=== PATIENT | female | born 1935 | race Caucasian/White ===

== ENCOUNTER → 2017-01-11 | Outpatient (CLI) | payer MEDICARE, OTHER ==
--- NOTE | 2017-01-11 18:01 | RADIOLOGY REPORT (SQ) ---
EXAM DESCRIPTION: FOOT RIGHT COMPLETE COMPLETED DATE/TIME: 01/11/2017 5:07 pm REASON FOR STUDY: GOUT, UNSPECIFIED M10.9 GOUT, UNSPECIFIED COMPARISON: None. NUMBER OF VIEWS: Three views. TECHNIQUE: AP, lateral and oblique radiographic images acquired of the right foot. LIMITATIONS: None. FINDINGS: MINERALIZATION: Normal. BONES: Marginal erosion along the medial base right great toe proximal phalanx characteristic for gou t. No fracture JOINTS: 1st metatarsophalangeal joint space narrowing. 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
== END ==
LOC: OD 16:53
PROVIDERS: ATTEND Physician Assistant
DX: M10.9 Gout, unspecified (principal)

== ENCOUNTER 2018-08-14 08:05 | Emergency (ER) | payer MEDICARE, OTHER ==
[2018-08-14] MEDS ORDERED: ACETAMINOPHEN 325 MG TABLET PO ONE (09:58)
[2018-08-14] MEDS ORDERED: NORMAL SALINE 1000 ML 1,000 ML IV ONE (09:58)
[2018-08-14 10:23] LABS: ABSOLUTE EOSINOPHILS # (AUTO) 0.1 10^3/uL (0.0-0.6); ABSOLUTE LYMPHOCYTES (AUTO) 0.5 10^3/uL (0.5-4.7); ABSOLUTE MONOCYTES (AUTO) 0.7 10^3/uL (0.1-1.4); ABSOLUTE NEUT (AUTO) 4.9 10^3/uL (1.7-8.2); BASOPHILS % (AUTO) 0.4 % (0-2); HEMATOCRIT 38.1 % (36.0-47.0); HEMOGLOBIN 13.1 g/dL (12.0-15.5); LYMPHOCYTES % (AUTO) 7.7 % (13-45); MEAN CORPUSCULAR HEMOGLOBIN 31.1 pg (27.0-33.4); MEAN CORPUSCULAR HGB CONC 34.3 g/dL (32.0-36.0); MEAN CORPUSCULAR VOLUME 91 fl (80-97); MONOCYTES % (AUTO) 11.9 % (3-13); PLATELET COUNT 179 10^3/uL (150-450); RED BLOOD COUNT 4.21 10^6/uL (3.72-5.28); RED CELL DISTRIBUTION WIDTH 13.1 % (11.5-14.0); TOTAL CELLS COUNTED % (AUTO) 100 %; WHITE BLOOD COUNT 6.1 10^3/uL (4.0-10.5)
--- NOTE | 2018-08-14 10:34 | ER Document Report ---
ED General - General Chief Complaint: Chest Pain Stated Complaint: CHEST PAIN Time Seen by Provider: 08/14/18 09:57 Primary Care Provider: PARI LOZA PA [Primary Care Provider] - Follow up as needed TRAVEL OUTSIDE OF THE [place] IN LAST 30 DAYS: No - HPI Notes: Patient is a 83-year-old female that presents to the emergency department for chief complaint of cough, chest pain and back pain. Patient reports on Sunday she choked while eating, later that evening she started coughing. She states she has had increasing coughing and congestion since then. She denied any known fevers but was told she was febrile when she was here today. Patient states she tried to see her doctor yesterday for the symptoms but was unable to get an appointment. She reports an aching pain in her diffuse anterior chest and posterior upper back worse with coughing. She states the pain significantly improves when she is not coughing. She denies any nausea, vomiting, abdominal pain. She did not get an influenza vaccine this year. She denies any sick contacts. Patient's family is also concerned that for the last month she has had decreased mobility because of gout in both of her feet. She is currently taking her allopurinol for the gout. Patient has not taken any of her morning medications yet today. Past Medical History: Hypertension, atrial fibrillation Past Surgical History: Right arm fracture repair Social History: Denies drugs alcohol and tobacco Family History: Reviewed and noncontributory for presenting illness Allergies: Reviewed, see documented allergy list. REVIEW OF SYSTEMS: CONSTITUTIONAL : No fever chills No diaphoresis No recent illness EENT: No vision changes congestion No sore throat CARDIOVASCULAR: chest pain No palpitations RESPIRATORY: shortness of breath cough difficulty breathing GASTROINTESTINAL: No abdominal pain No nausea No vomiting No diarrhea GENITOURINARY: No dysuria No hematuria No difficulty urinating MUSCULOSKELETAL: back pain No leg pain No arm pain SKIN: No rashes No lesions LYMPHATIC: No swollen, enlarged glands. NEUROLOGICAL: No lightheadedness No headache No weakness No paresthesias PSYCHIATRIC: No anxiety No depression PHYSICAL EXAMINATION: Vital signs reviewed, nursing noted reviewed. GENERAL: Well-appearing, well-nourished and in no acute distress. HEAD: Atraumatic, normocephalic. EYES: Eyes appear normal, extraocular movements intact, sclera anicteric, conjunctiva are normal. ENT: nares patent, oropharynx clear without exudates. Mildly dry mucous membranes. NECK: Normal range of motion, supple without lymphadenopathy LUNGS: Breath sounds diminished to auscultation bilaterally and equal. No wheezes rales or rhonchi. HEART: Irregularly irregular and tachycardic rhythm without murmurs, +2/4 bilateral radial and DP pulses ABDOMEN: Soft, nontender, normoactive bowel sounds. No rebound, guarding, or rigidity. No masses appreciated. EXTREMITIES: Nontender, good range of motion, no pitting or edema. NEUROLOGICAL: No focal neurological deficits. Moves all extremities spontaneously Motor and sensory grossly intact on exam. Mild diffuse tenderness to palpation of her feet bilaterally with no focal erythema or edema. PSYCH: Normal mood, normal affect. SKIN: Warm, Dry, normal turgor, no rashes or lesions noted on exposed skin - Related Data Allergies/Adverse Reactions: No Known Allergies Allergy (Verified 08/14/18 08:08) Past Medical History - Social History Smoking Status: Unknown if Ever Smoked Family History: Reviewed & Not Pertinent Patient has suicidal ideation: No Patient has homicidal ideation: No - Past Medical History Cardiac Medical History: Reports: Hx Hypertension Denies: Hx Heart Attack Pulmonary Medical History: Denies: Hx Asthma Neurological Medical History: Denies: Hx Cerebrovascular Accident, Hx Seizures Renal/ Medical History: Denies: Hx Peritoneal Dialysis GI Medical History: Denies: Hx Hepatitis, Hx Ulcer Musculoskeletal Medical History: Infectious Medical History: Denies: Hx Hepatitis Past Surgical History: Denies: Hx Mastectomy, Hx Open Heart Surgery, Hx Pacemaker - Immunizations Hx Diphtheria, Pertussis, Tetanus Vaccination: Yes Physical Exam - Vital signs Vitals: Temp Pulse Resp BP Pulse Ox 101.4 F H 100 16 151/71 H 100 08/14/18 08:09 08/14/18 08:09 08/14/18 08:09 08/14/18 08:09 08/14/18 08:09 Course - Re-evaluation Re-evalutation: 08/14/18 10:33 Vitals reviewed. Nursing notes reviewed. Patient is tachycardic and febrile. She will be given IV fluids and Tylenol for symptom medic management. 08/14/18 12:32 Laboratory 08/14/18 08/14/18 08/14/18 09:44 09:44 09:44 WBC 6.1 RBC 4.21 Hgb 13.1 Hct 38.1 MCV 91 MCH 31.1 MCHC 34.3 RDW 13.1 Plt Count 179 Seg Neutrophils % 79.0 H Lymphocytes % 7.7 L Monocytes % 11.9 Eosinophils % 1.0 Basophils % 0.4 Absolute Neutrophils 4.9 Absolute Lymphocytes 0.5 Absolute Monocytes 0.7 Absolute Eosinophils 0.1 Absolute Basophils 0.0 Sodium Cancelled Potassium Cancelled Chloride Cancelled Carbon Dioxide Cancelled Anion Gap Cancelled BUN Cancelled Creatinine Cancelled Est GFR ( Amer) Cancelled Est GFR (Non-Af Amer) Cancelled Glucose Cancelled Lactic Acid Calcium Cancelled Total Bilirubin Cancelled Direct Bilirubin Cancelled Neonat Total Bilirubin Cancelled Neonat Direct Bilirubin Cancelled Neonat Indirect Bili Cancelled AST Cancelled ALT Cancelled Alkaline Phosphatase Cancelled Troponin I < 0.012 Total Protein Cancelled Albumin Cancelled Influenza A (Rapid) Influenza B (Rapid) 08/14/18 08/14/18 08/14/18 10:20 10:20 10:51 WBC RBC Hgb Hct MCV MCH MCHC RDW Plt Count Seg Neutrophils % Lymphocytes % Monocytes % Eosinophils % Basophils % Absolute Neutrophils Absolute Lymphocytes Absolute Monocytes Absolute Eosinophils Absolute Basophils Sodium 135.1 L Potassium 4.4 Chloride 101 Carbon Dioxide 26 Anion Gap 8 BUN 12 Creatinine 1.00 Est GFR ( Amer) > 60 Est GFR (Non-Af Amer) 53 L Glucose 109 Lactic Acid 0.9 Calcium 9.5 Total Bilirubin 0.5 Direct Bilirubin 0.1 Neonat Total Bilirubin Not Reportable Neonat Direct Bilirubin Not Reportable Neonat Indirect Bili Not Reportable AST 30 ALT 27 Alkaline Phosphatase 55 Troponin I Total Protein 6.3 Albumin 3.7 Influenza A (Rapid) POSITIVE Influenza B (Rapid) NEGATIVE Chest X-Ray 08/14/18 09:57 IMPRESSION: Cardiomegaly without acute abnormality of the lungs. No focal airspace opacity. Patient reevaluated. She is oxygenating well on room air and in no respiratory distress. Her heart rate has been varying between the upper 90s-130s. She is in atrial fibrillation which is chronic for her. Patient will be given a dose of her Bystolic for further heart rate control. She was offered admission to the hospital for telemetry monitoring of her tachycardia but has declined. She is otherwise hemodynamically stable. Her workup shows influenza a however she is outside the window for Tamiflu. She was counseled on symptomatic management including hydration and Tylenol at home. She was encouraged to follow with her primary care doctor tomorrow for reevaluation of her tachycardia. She will also monitor her heart rate at home and will return if she is persistently tachycard ic greater than 120 or if she becomes symptomatic including palpitations, shortness of breath and lightheadedness. Patient's family is in agreement with plan of care and will assist her this evening. She is stable at discharge. - Vital Signs Vital signs: Temp Pulse Resp BP Pulse Ox 101.4 F H 100 16 151/71 H 100 08/14/18 08:09 08/14/18 08:09 08/14/18 08:09 08/14/18 08:09 08/14/18 08:09 - Laboratory Result Diagrams: 08/14/18 09:44 08/14/18 10:51 Laboratory results interpreted by me: 08/14/18 08/14/18 09:44 10:51 Seg Neutrophils % 79.0 H Lymphocytes % 7.7 L Sodium 135.1 L Est GFR (Non-Af Amer) 53 L - EKG Interpretation by Me Additional EKG results interpreted by me: 08/14/18 10:33 Interpreted by myself 0815: Atrial fibrillation with RVR, rate 100, normal axis, left bundle branch block Discharge - Discharge Clinical Impression: Influenza A Condition: Stable Disposition: HOME, SELF-CARE Instructions: Influenza ([facility]) [id number] Additional Instructions: Please return to the emergency department if you have any worsening, or concern of your symptoms. Please return to the emergency department if you develop chest pain, difficulty breathing, severe abdominal pain, or ongoing vomiting. Please follow-up with your primary care physician tomorrow. If prescribed, take all medications as directed. If you have any questions or concerns do not hesitate to return the emergency department for evaluation. Your heart rate was elevated today because of fever and your atrial fibrillation. You were given your dose of Bystolic in the emergency room and do not need to take this home medication again this evening. Please check your heart rate at home and if you are having heart rates consistently above 120-130 you should return to the emergency room. Return to the emergency room also if you develop any palpitations, increasing shortness of breath, lightheadedness or difficulty breathing. Referrals: PARI LOZA PA [Primary Care Provider] - Follow up tomorrow
[2018-08-14 10:53] LABS: A TYPE INFLUENZA AG POSITIVE (NEGATIVE); B INFLUENZA AG NEGATIVE (NEGATIVE)
[2018-08-14 11:21] LABS: ALANINE AMINOTRANSFERASE 27 U/L (9-52); ALBUMIN 3.7 g/dL (3.5-5.0); ALKALINE PHOSPHATASE 55 U/L (38-126); ANION GAP 8 (5-19); ASPARTATE AMINO TRANSFERASE 30 U/L (14-36); BILIRUBIN,DIRECT 0.1 mg/dL (0.0-0.4); BILIRUBIN,TOTAL 0.5 mg/dL (0.2-1.3); BLOOD UREA NITROGEN 12 mg/dL (7-20); CALCIUM 9.5 mg/dL (8.4-10.2); CARBON DIOXIDE 26 mmol/L (22-30); CHLORIDE 101 mmol/L (98-107); GLUCOSE 109 mg/dL (75-110); POTASSIUM 4.4 mmol/L (3.6-5.0); SODIUM 135.1 mmol/L (137-145); TOTAL PROTEIN 6.3 g/dL (6.3-8.2)
--- NOTE | 2018-08-14 11:32 | RADIOLOGY REPORT (SQ) ---
EXAM DESCRIPTION: CHEST 2 VIEWS COMPLETED DATE/TIME: 08/14/2018 11:23 am REASON FOR STUDY: cough COMPARISON: None. EXAM PARAMETERS: NUMBER OF VIEWS: two views TECHNIQUE: Digital Frontal and Lateral radiographic views of the chest acquired. RADIATION DOSE: NA LIMITATIONS: none FINDINGS: LUNGS AND PLEURA: No opacities, masses or pneumothorax. No pleural effusion. MEDIASTINUM AND HILAR STRUCTURES: No masses or contour abnormalities. HEART AND VASCULAR STRUCTURES: Cardiomegaly. BONES: Partially imaged plate and screw fixation of the proximal right humerus. HARDWARE: None in the chest. OTHER: No other significant finding. IMPRESSION: Cardiomegaly without acute abnormality of the lungs. No focal airspace opacity. TECHNICAL DOCUMENTATION: JOB ID: [id number] [employer]- All Rights Reserved Reading location - IP/workstation name: [email or web address]
[2018-08-14] MEDS ORDERED: NEBIVOLOL HCL 10 MG TABLET PO ONE (11:52)
[2018-08-14 12:56] VITALS: BP 125/75
--- NOTE | 2018-08-14 21:05 | EKG REPORT ---
SEVERITY:- ABNORMAL ECG - ATRIAL FIBRILLATION, V-RATE 76-126 LEFT BUNDLE BRANCH BLOCK : Confirmed by: Estelle Alva 14-Aug-2018 21:04:31
== END 2018-08-14 13:07 | disposition home or self-care (01) ==
LOC: ER 08:05
DX: J10.1 Influenza due to other identified influenza virus with other respiratory manifestations (principal); R07.9 Chest pain, unspecified; R05 Cough; M54.9 Dorsalgia, unspecified; I10 Essential (primary) hypertension; I48.91 Unspecified atrial fibrillation; I44.7 Left bundle-branch block, unspecified
CPT/HCPCS: 93005; 99283; 96360; 96361; 36415; 87040; 85025; 80076; 80048; 84484; 83605; 87804; 71046; 93010; A9270 ×2; J7030

== ENCOUNTER 2019-04-24 17:36 | Emergency (ER) | payer MEDICARE, OTHER ==
[2019-04-24 17:37] VITALS: BP 181/66
--- NOTE | 2019-04-24 17:45 | ER Document Report ---
ED Medical Screen (RME) - General Chief Complaint: Fall Stated Complaint: FALL/HEAD PAIN Time Seen by Provider: 04/24/19 17:39 Primary Care Provider: APRI LOZA PA [Primary Care Provider] - Follow up as needed Mode of Arrival: Wheelchair Information source: Patient Notes: 84-year-old female presented to ED for fall landing on her hip hand and her head. She is on Eliquis. She was to her primary care doctor yesterday her heart rate is running in the 50s. 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 She states she also had no feeling in the right hip at the time she fell. I have greeted and performed a rapid initial assessment of this patient. A comprehensive ED assessment and evaluation of the patient, analysis of test results and completion of medical decision making process will be conducted by an additional ED providers. TRAVEL OUTSIDE OF THE [place] IN LAST 30 DAYS: No - Related Data Allergies/Adverse Reactions: No Known Allergies Allergy (Verified 08/14/18 08:08) Past Medical History - Past Medical History Cardiac Medical History: Reports: Hx Hypertension Denies: Hx Heart Attack Pulmonary Medical History: Denies: Hx Asthma Neurological Medical History: Denies: Hx Cerebrovascular Accident, Hx Seizures Renal/ Medical History: Denies: Hx Peritoneal Dialysis GI Medical History: Denies: Hx Hepatitis, Hx Ulcer Musculoskeltal Medical History: Infectious Medical History: Denies: Hx Hepatitis Past Surgical History: Denies: Hx Mastectomy, Hx Open Heart Surgery, Hx Pacemaker - Immunizations Hx Diphtheria, Pertussis, Tetanus Vaccination: Yes Physical Exam - Vital signs Vitals: Temp Pulse Resp BP Pulse Ox 97.5 F 55 L 16 181/66 H 97 04/24/19 17:36 04/24/19 17:36 04/24/19 17:36 04/24/19 17:36 04/24/19 17:36 Course - Vital Signs Vital signs: Temp Pulse Resp BP Pulse Ox 97.5 F 55 L 16 181/66 H 97 04/24/19 17:36 04/24/19 17:36 04/24/19 17:36 04/24/19 17:36 04/24/19 17:36 Doctor's Discharge - Discharge Referrals: DENIA,PARI, PA [Primary Care Provider] - Follow up as needed
--- NOTE | 2019-04-24 18:51 | RADIOLOGY REPORT (SQ) ---
EXAM DESCRIPTION: HAND LEFT 3 VIEWS COMPLETED DATE/TIME: 04/24/2019 6:16 pm REASON FOR STUDY: Fall injury to left hand and left hip COMPARISON: None. EXAM PARAMETERS: NUMBER OF VIEWS: Three views. TECHNIQUE: AP, lateral and oblique radiographic images acquired of the left hand. LIMITATIONS: None. FINDINGS: MINERALIZATION: Normal. BONES: No acute fracture or dislocation. No worrisome bone lesions. JOINTS: No effusions. 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 SOFT TISSUES: No soft tissue swelling. No foreign body. OTHER: No other significant finding. IMPRESSION: NO RADIOGRAPHIC EVIDENCE OF ACUTE INJURY. TECHNICAL DOCUMENTATION: JOB ID: [id number] [employer]- All Rights Reserved Reading location - IP/workstation name: [email or web address]
--- NOTE | 2019-04-24 18:52 | RADIOLOGY REPORT (SQ) ---
EXAM DESCRIPTION: HIP LEFT AP/LATERAL COMPLETED DATE/TIME: 04/24/2019 6:16 pm REASON FOR STUDY: Fall injury to left hand and left hip COMPARISON: None. NUMBER OF VIEWS: Two views. TECHNIQUE: AP pelvis and additional frog-leg view of the left hip. LIMITATIONS: None. FINDINGS: MINERALIZATION: Normal. LEFT HIP: No fracture or dislocation. No worrisome bone lesions. RIGHT HIP: No fracture or dislocation. No worrisome bone lesions. PUBIS AND ISCHIUM: No fracture. PELVIS: No fracture. SACRUM: No fracture or dislocation. No worrisome bone lesions. LOWER LUMBAR SPINE: No fracture or dislocation. No worrisome bone lesions. Degenerative changes. SOFT TISSUES: No findings. OTHER: No other significant finding. IMPRESSION: NEGATIVE STUDY OF THE LEFT HIP AND PELVIS. NO RADIOGRAPHIC EVIDENCE OF ACUTE INJURY. TECHNICAL DOCUMENTATION: JOB ID: [id number] [employer]- All Rights Reserved Reading location - IP/workstation name: [email or web address]
--- NOTE | 2019-04-24 18:53 | RADIOLOGY REPORT (SQ) ---
EXAM DESCRIPTION: KNEE RIGHT 4 VIEWS COMPLETED DATE/TIME: 04/24/2019 6:16 pm REASON FOR STUDY: FALL COMPARISON: Right knee radiographs 02/13/2008 NUMBER OF VIEWS: Four views. TECHNIQUE: AP, lateral, and both oblique radiographic images acquired of the right knee. LIMITATIONS: None. FINDINGS: MINERALIZATION: Normal. BONES: No acute fracture or dislocation. No worrisome bone lesions. JOINT: No effusion. Mild osteoarthritis. SOFT TISSUES: No soft tissue swelling. No radio-opaque foreign body. OTHER: No other significant finding. IMPRESSION: NO RADIOGRAPHIC EVIDENCE OF ACUTE INJURY. TECHNICAL DOCUMENTATION: JOB ID: [id number] [employer]- All Rights Reserved Reading location - IP/workstation name: [email or web address]
--- NOTE | 2019-04-24 19:15 | RADIOLOGY REPORT (SQ) ---
EXAM DESCRIPTION: CT HEAD WITHOUT COMPLETED DATE/TIME: 04/24/2019 6:34 pm REASON FOR STUDY: Fall hit head on Eliquis COMPARISON: None. TECHNIQUE: Axial images acquired through the brain without intravenous contrast. Images reviewed wi th bone, brain and subdural windows. Additional sagittal and coronal reconstructions were generated. Images stored on PACS. All CT scanners at this facility use dose modulation, iterative reconstruction, and/or weight based d osing when appropriate to reduce radiation dose to as low as reasonably achievable (ALARA). [facility]: Dose Right [facility]: CareDose [facility]: Dose Right [facility]: Teradose 4D [facility]: Smart Spectral Image RADIATION DOSE: CT Rad equipment meets quality standard of care and radiation dose reduction techniq ues were employed. CTDIvol: 53.2 mGy. DLP: 964 mGy-cm. mGy. LIMITATIONS: None. FINDINGS: VENTRICLES: Prominent ventricles secondary to involutional atrophy. CEREBRUM: No masses. No hemorrhage. No midline shift. No evidence for acute infarction. Normal gra y/white matter differentiation. No areas of low density in the white matter. CEREBELLUM: No masses. No hemorrhage. No alteration of density. No evidence for acute infarction. EXTRAAXIAL SPACES: No abnormal fluid collections. Empty sella. No masses. ORBITS AND GLOBE: No intra- or extraconal masses. Normal contour of globe without masses. Cataract surgery. CALVARIUM: No fracture. PARANASAL SINUSES: Right maxillary mucous retention cyst. SOFT TISSUES: No mass or hematoma. OTHER: No other significant finding. IMPRESSION: NO ACUTE INTRACRANIAL IMAGING FINDINGS. EVIDENCE OF ACUTE STROKE: NO. COMMENT: Quality ID # [id number]: Final reports with documentation of one or more dose reduction techniques (e.g., Automated exposure control, adjustment of the mA and/or kV according to patient size, use of iterative reconstruction technique) TECHNICAL DOCUMENTATION: JOB ID: [id number] [employer]- All Rights Reserved Reading location - IP/workstation name: TO
[2019-04-24 19:22] LABS: ABSOLUTE BASOPHILS # (AUTO) 0.1 10^3/uL (0.0-0.2); ABSOLUTE EOSINOPHILS # (AUTO) 0.1 10^3/uL (0.0-0.6); ABSOLUTE LYMPHOCYTES (AUTO) 1.6 10^3/uL (0.5-4.7); ABSOLUTE MONOCYTES (AUTO) 0.6 10^3/uL (0.1-1.4); ABSOLUTE NEUT (AUTO) 4.9 10^3/uL (1.7-8.2); BASOPHILS % (AUTO) 0.7 % (0-2); EOSINOPHILS % (AUTO) 1.5 % (0-6); HEMATOCRIT 40.8 % (36.0-47.0); HEMOGLOBIN 13.8 g/dL (12.0-15.5); LYMPHOCYTES % (AUTO) 21.9 % (13-45); MEAN CORPUSCULAR HEMOGLOBIN 31.8 pg (27.0-33.4); MEAN CORPUSCULAR HGB CONC 33.7 g/dL (32.0-36.0); MEAN CORPUSCULAR VOLUME 94 fl (80-97); MONOCYTES % (AUTO) 8.8 % (3-13); PLATELET COUNT 199 10^3/uL (150-450); RED BLOOD COUNT 4.33 10^6/uL (3.72-5.28); RED CELL DISTRIBUTION WIDTH 13.4 % (11.5-14.0); SEGMENTED NEUTROPHILS % (AUTO) 67.1 % (42-78); TOTAL CELLS COUNTED % (AUTO) 100 %; WHITE BLOOD COUNT 7.3 10^3/uL (4.0-10.5)
[2019-04-24 19:35] LABS: INTERNATIONAL RATION (INR) 1.62; PROTHROMBIN TIME 19.4 SEC (11.4-15.4)
[2019-04-24 19:36] LABS: PARTIAL THROMBOPLASTIN TIME 38.8 SEC (23.5-35.8)
[2019-04-24 19:42] LABS: ALBUMIN 4.4 g/dL (3.5-5.0); ALKALINE PHOSPHATASE 62 U/L (38-126); ANION GAP 9 (5-19); ASPARTATE AMINO TRANSFERASE 34 U/L (14-36); BILIRUBIN,DIRECT 0.2 mg/dL (0.0-0.4); BILIRUBIN,TOTAL 0.4 mg/dL (0.2-1.3); BLOOD UREA NITROGEN 19 mg/dL (7-20); CARBON DIOXIDE 28 mmol/L (22-30); CHLORIDE 102 mmol/L (98-107); GLUCOSE 91 mg/dL (75-110); POTASSIUM 4.4 mmol/L (3.6-5.0); TOTAL PROTEIN 7.6 g/dL (6.3-8.2)
== END 2019-04-24 23:30 | disposition left against medical advice (07) ==
LOC: ER 17:36
DX: Z53.21 Procedure and treatment not carried out due to patient leaving prior to being seen by health care provider (principal); R51 Headache; Z79.01 Long term (current) use of anticoagulants
CPT/HCPCS: 36415; 70450; 80053; 85025; 85610; 85730

== ENCOUNTER → 2019-07-04 | Outpatient (CLI) | payer MEDICARE, OTHER ==
[2019-07-04 14:19] LABS: ABSOLUTE EOSINOPHILS # (AUTO) 0.2 10^3/uL (0.0-0.6); ABSOLUTE LYMPHOCYTES (AUTO) 1.9 10^3/uL (0.5-4.7); ABSOLUTE MONOCYTES (AUTO) 0.5 10^3/uL (0.1-1.4); ABSOLUTE NEUT (AUTO) 3.3 10^3/uL (1.7-8.2); BASOPHILS % (AUTO) 0.8 % (0-2); EOSINOPHILS % (AUTO) 3.4 % (0-6); HEMATOCRIT 37.8 % (36.0-47.0); HEMOGLOBIN 12.8 g/dL (12.0-15.5); LYMPHOCYTES % (AUTO) 31.8 % (13-45); MEAN CORPUSCULAR HEMOGLOBIN 31.8 pg (27.0-33.4); MEAN CORPUSCULAR HGB CONC 33.9 g/dL (32.0-36.0); MEAN CORPUSCULAR VOLUME 94 fl (80-97); MONOCYTES % (AUTO) 8.3 % (3-13); PLATELET COUNT 181 10^3/uL (150-450); RED BLOOD COUNT 4.03 10^6/uL (3.72-5.28); RED CELL DISTRIBUTION WIDTH 13.5 % (11.5-14.0); SEGMENTED NEUTROPHILS % (AUTO) 55.7 % (42-78); TOTAL CELLS COUNTED % (AUTO) 100 %; WHITE BLOOD COUNT 5.9 10^3/uL (4.0-10.5)
--- NOTE | 2019-07-04 15:24 | RADIOLOGY REPORT (SQ) ---
EXAM DESCRIPTION: CHEST PA/LATERAL COMPLETED DATE/TIME: 07/04/2019 1:42 pm REASON FOR STUDY: COUGH COMPARISON: 08/14/2018 EXAM PARAMETERS: NUMBER OF VIEWS: two views TECHNIQUE: Digital Frontal and Lateral radiographic views of the chest acquired. RADIATION DOSE: NA LIMITATIONS: none FINDINGS: LUNGS AND PLEURA: No opacities, masses or pneumothorax. No pleural effusion. MEDIASTINUM AND HILAR STRUCTURES: No masses or contour abnormalities. HEART AND VASCULAR STRUCTURES: Cardiomegaly is present. There is no pulmonary edema. BONES: No acute findings. HARDWARE: None in the chest. OTHER: No other significant finding. IMPRESSION: Cardiomegaly without pulmonary edema. TECHNICAL DOCUMENTATION: JOB ID: [id number] [employer]- All Rights Reserved Reading location - IP/workstation name: [email or web address]
== END ==
LOC: OD 13:25
PROVIDERS: ATTEND Physician Assistant
DX: R05 Cough (principal)
CPT/HCPCS: 36415; 71046; 85025

== ENCOUNTER 2019-07-17 14:19 | Emergency (ER) | payer MEDICARE, OTHER ==
[2019-07-17 15:09] LABS: ABSOLUTE EOSINOPHILS # (AUTO) 0.1 10^3/uL (0.0-0.6); ABSOLUTE LYMPHOCYTES (AUTO) 1.5 10^3/uL (0.5-4.7); ABSOLUTE MONOCYTES (AUTO) 0.5 10^3/uL (0.1-1.4); ABSOLUTE NEUT (AUTO) 3.6 10^3/uL (1.7-8.2); BASOPHILS % (AUTO) 0.7 % (0-2); EOSINOPHILS % (AUTO) 2.6 % (0-6); HEMATOCRIT 39.8 % (36.0-47.0); HEMOGLOBIN 13.4 g/dL (12.0-15.5); LYMPHOCYTES % (AUTO) 25.5 % (13-45); MEAN CORPUSCULAR HGB CONC 33.8 g/dL (32.0-36.0); MEAN CORPUSCULAR VOLUME 95 fl (80-97); MONOCYTES % (AUTO) 8.5 % (3-13); PLATELET COUNT 189 10^3/uL (150-450); RED BLOOD COUNT 4.21 10^6/uL (3.72-5.28); SEGMENTED NEUTROPHILS % (AUTO) 62.7 % (42-78); TOTAL CELLS COUNTED % (AUTO) 100 %; WHITE BLOOD COUNT 5.7 10^3/uL (4.0-10.5)
--- NOTE | 2019-07-17 15:18 | ER Document Report ---
ED Cardiac - General Chief Complaint: Chest Pain Stated Complaint: CHEST PAIN Time Seen by Provider: 07/17/19 15:13 Primary Care Provider: PARI LOZA PA [Primary Care Provider] - Follow up as needed TRAVEL OUTSIDE OF THE [place] IN LAST 30 DAYS: Yes - HPI Notes: 84-year-old female to the emergency department with history of atrial fibrillation and hypertension with complaints of 10 days of nighttime chest pain that has gotten progressively worse, uncontrolled high blood pressure, and palpitations. She states that every night she has left-sided chest pain that radiates down her left arm with a sensation that her heart is racing. She takes medication for her history of atrial fib and is on Bystolic and several other blood pressure medicines. She was on amiodarone in August of this past year but has come off of that because she has had thyroid issues from it. She states that she is also noted that her blood pressures been in the 200s systolic. She called her patient relations manager in [place], Dr. Tapia with [facility], on this past Sunday and they started her on hydralazine twice a day. Patient states that she has been faithful in the medicine but she has not really seen much of an improvement of her blood pressure. She continues to have the chest pain every night. She states that the chest pain seems to get a little bit better during the day but for the first time today she had an episode of chest pain with her daughter while they were driving in the car. The medics were called. They gave her nitro glycerin and she is currently chest pain-free. She denies any diaphoresis or shortness of breath with it. She states that she is on Eliquis. She is never had a heart attack. She denies any leg swelling. She is never had a DVT. Patient and her family tell me that they called Dr. Tapia after this episode of chest pain and Dr. Tapia after initial assessment here would like her transferred to [place] for further evaluation of the chest pain and palpitations. Patient also admits fleeting episodes of dizziness but denies any syncope. - Related Data Allergies/Adverse Reactions: No Known Allergies Allergy (Verified 04/24/19 18:06) Past Medical History - General Information source: Patient, Relative - Social History Smoking Status: Never Smoker Frequency of alcohol use: None Drug Abuse: None Lives with: Alone Family History: Hypertension Patient has suicidal ideation: No Patient has homicidal ideation: No - Past Medical History Cardiac Medical History: Reports: Hx Hypertension Denies: Hx Heart Attack Pulmonary Medical History: Denies: Hx Asthma Neurological Medical History: Denies: Hx Cerebrovascular Accident, Hx Seizures Renal/ Medical History: Denies: Hx Peritoneal Dialysis GI Medical History: Denies: Hx Hepatitis, Hx Ulcer Musculoskeletal Medical History: Infectious Medical History: Denies: Hx Hepatitis Past Surgical History: Denies: Hx Mastectomy, Hx Open Heart Surgery, Hx Pacemaker - Immunizations Hx Diphtheria, Pertussis, Tetanus Vaccination: Yes Review of Systems - Review of Systems Constitutional: Chills. denies: Fever EENT: No symptoms reported Cardiovascular: Chest pain, Palpitations, Heart racing, Dizziness. denies: Orthopnea, Dyspnea, Syncope, Lightheaded, Edema Respiratory: denies: Cough, Short of breath Gastrointestinal: denies: Abdominal pain, Nausea, Vomiting Musculoskeletal: No symptoms reported Skin: No symptoms reported Hematologic/Lymphatic: No symptoms reported Neurological/Psychological: No symptoms reported -: Yes All other systems reviewed and negative Physical Exam - Vital signs Vitals: Temp 97.8 F 07/17/19 14:41 Interpretation: Hypertensive - General General appearance: Appears well, Alert In distress: None - HEENT Head: Normocephalic, Atraumatic Eyes: Normal Pupils: PERRL - Respiratory Respiratory status: No respiratory distress Chest status: Nontender. No: Accessory muscle use Breath sounds: Normal. No: Rales, Rhonchi, Stridor, Wheezing Chest palpation: Normal - Cardiovascular Rhythm: Regular Heart sounds: Normal auscultation Murmur: No Notes: No leg edema - Abdominal Inspection: Normal Distension: No distension Bowel sounds: Normal Tenderness: Nontender Organomegaly: No organomegaly - Back Back: Normal, Nontender - Extremities General upper extremity: Normal inspection, Nontender, Normal color, Normal ROM, Normal temperature General lower extremity: Normal inspection, Nontender, Normal color, Normal ROM, Normal temperature, Normal weight bearing. No: Gisella's sign - Neurological Neuro grossly intact: Yes Cognition: Normal Orientation: AAOx4 Nikolay Coma Scale Eye Opening: Spontaneous Nikolay Coma Scale Verbal: Oriented Ord Coma Scale Motor: Obeys Commands Ord Coma Scale Total: 15 Speech: Normal Cranial nerves: Normal Cerebellar coordination: Normal. 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 No: Pronator drift Sensory: Normal - Psychological Associated symptoms: Normal affect, Normal mood - Skin Skin Temperature: Warm Skin Moisture: Dry Skin Color: Normal Course - Re-evaluation Re-evalutation: Discussed patient with Dr. Iglesias, ER attending. She agrees with plan for admission to patient's cardiology group in [place] at [place]. She suggest sublingual 07/17/19 Impression: Chest pain and palpitations. Have placed a page out to [facility] for transfer of the patient per her request and for continuity of care with her patient relations manager. Patient has been accepted to Dr. Seamus Almeida's service. She continues to be chest pain-free. We will await bed assignment at [place] and transport at that time. Family has been updated and they agree with the plan. - Vital Signs Vital signs: Temp Pulse Resp BP Pulse Ox 97.8 F 19 199/76 H 98 07/17/19 17:36 07/17/19 19:01 07/17/19 19:00 07/17/19 19:01 - Laboratory Result Diagrams: 07/17/19 13:45 07/17/19 13:45 Laboratory results interpreted by me: 07/17/19 13:45 Est GFR (MDRD) Non-Af 52 L Calcium 10.8 H - Diagnostic Test Radiology reviewed: Image reviewed, Reports reviewed - EKG Interpretation by Me Additional EKG results interpreted by me: 07/17/19 Rate 52, rhythm: sinus, interpretation: Left bundle branch block, no STEMI. Left bundle branch block is unchanged from prior on August 14, 2018 Discharge - Discharge Clinical Impression: Chest pain, Palpitations, Hypertension Condition: Stable Disposition: OTHER Referrals: PARI LOZA PA [Primary Care Provider] - Follow up as needed
[2019-07-17 15:25] LABS: ALBUMIN 4.3 g/dL (3.5-5.0); ALKALINE PHOSPHATASE 56 U/L (38-126); ANION GAP 10 (5-19); ASPARTATE AMINO TRANSFERASE 33 U/L (14-36); BILIRUBIN,DIRECT 0.2 mg/dL (0.0-0.4); BILIRUBIN,TOTAL 0.5 mg/dL (0.2-1.3); BLOOD UREA NITROGEN 16 mg/dL (7-20); CALCIUM 10.8 mg/dL (8.4-10.2); CARBON DIOXIDE 27 mmol/L (22-30); CHLORIDE 103 mmol/L (98-107); CREATINE KINASE 106 U/L (30-135); GLUCOSE 99 mg/dL (75-110); POTASSIUM 4.6 mmol/L (3.6-5.0); TOTAL PROTEIN 7.6 g/dL (6.3-8.2)
[2019-07-17 15:37] LABS: CREATINE KINASE MB 3.45 ng/mL (<4.55)
[2019-07-17 15:49] LABS: TROPONIN I < 0.012 ng/mL
--- NOTE | 2019-07-17 15:52 | RADIOLOGY REPORT (SQ) ---
EXAM DESCRIPTION: CHEST 2 VIEWS COMPLETED DATE/TIME: 07/17/2019 3:43 pm REASON FOR STUDY: chest pain COMPARISON: 07/04/2019 EXAM PARAMETERS: NUMBER OF VIEWS: two views TECHNIQUE: Digital Frontal and Lateral radiographic views of the chest acquired. RADIATION DOSE: NA LIMITATIONS: none FINDINGS: LUNGS AND PLEURA: No opacities, masses or pneumothorax. No pleural effusion. MEDIASTINUM AND HILAR STRUCTURES: No masses or contour abnormalities. HEART AND VASCULAR STRUCTURES: Cardiomegaly. No claribel pulmonary edema. BONES: No acute findings. HARDWARE: None in the chest. OTHER: No other significant finding. IMPRESSION: Cardiomegaly without pulmonary edema. TECHNICAL DOCUMENTATION: JOB ID: [id number] [employer]- All Rights Reserved Reading location - IP/workstation name: [email or web address]
--- NOTE | 2019-07-17 21:50 | EKG REPORT ---
SEVERITY:- ABNORMAL ECG - SINUS RHYTHM IVCD, CONSIDER ATYPICAL LBBB : Confirmed by: Estelle Alva 17-Jul-2019 21:50:08
[2019-07-17] MEDS ORDERED: NEBIVOLOL HCL 10 MG TABLET PO ONE (22:25)
[2019-07-17] MEDS ORDERED: LISINOPRIL 10 MG TABLET PO ONE (22:25)
[2019-07-17] MEDS ORDERED: SIMVASTATIN 10 MG TABLET PO ONE (22:25)
[2019-07-17] MEDS ORDERED: HYDRALAZINE HCL 25 MG TABLET PO ONE (22:25)
[2019-07-17] MEDS ORDERED: APIXABAN 5 MG TABLET PO ONE (22:25)
--- NOTE | 2019-07-18 16:00 | ER Document Report ---
Doctor's Note Notes: 07/18/19 15:57 The patient's medications based on the pharmacy reported list, were ordered. The patient did have Bystolic 20 mg ordered but it was last filled January 17, 2019. Her blood pressure is not running high, so I did not order the Bystolic. The patient is still waiting for bed assignment at [facility]. 07/18/19 16:57 With the initial medication orders I spoke with the patient, she has had no pain today. She reports that she has not taken nitroglycerin on any of the episodes of nocturnal chest pain. She did receive nitroglycerin yesterday afternoon from EMS for her daytime chest pain she was having, and states that it helped relieve the pain almost immediately. I reviewed her medications with her, and it turns out that she is says she filled her Bystolic prescription in June 2019, and that she currently takes 20 mg in the morning and 10 mg at bedtime.
[2019-07-18] MEDS ORDERED: HYDRALAZINE HCL 50 MG TABLET PO SCH (18:00)
[2019-07-18] MEDS ORDERED: APIXABAN 5 MG TABLET PO SCH (18:00)
[2019-07-18] MEDS ORDERED: ALLOPURINOL 300 MG TABLET PO SCH (18:00)
[2019-07-18] MEDS: LISINOPRIL 10 MG TABLET PO SCH ×2 (21:42→21:44)
[2019-07-18] MEDS ORDERED: LISINOPRIL 10 MG TABLET PO SCH (22:00)
[2019-07-18] MEDS ORDERED: NEBIVOLOL HCL 10 MG TABLET PO SCH (22:00)
[2019-07-19] MEDS ORDERED: LEVOTHYROXINE SODIUM 0.05 MG TABLET PO SCH (10:00)
[2019-07-19] MEDS ORDERED: NEBIVOLOL HCL 10 MG TABLET PO SCH (10:00)
[2019-07-19] MEDS ORDERED: SIMVASTATIN 10 MG TABLET PO SCH (10:00)
[2019-07-19 14:13] VITALS: BP 151/55
== END 2019-07-19 14:13 | disposition other institution (70) ==
LOC: ER 14:19
DX: R00.2 Palpitations (principal); R07.9 Chest pain, unspecified; I10 Essential (primary) hypertension; R68.83 Chills (without fever); I44.7 Left bundle-branch block, unspecified
CPT/HCPCS: 93005; 99285; 36415; 82553; 82550; 85025; 80053; 84484; 71046; 93010; A9270 ×5

== ENCOUNTER → 2020-05-20 | Outpatient (CLI) | payer MEDICARE, OTHER ==
--- NOTE | 2020-05-20 13:17 | RADIOLOGY REPORT (SQ) ---
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 TECHNIQUE: Dynamic and static grayscale images acquired of the kidneys and bladder and recorded on P ACS. Additional selected color Doppler and spectral images recorded. LIMITATIONS: None. FINDINGS: RIGHT KIDNEY: Normal size, 11 cm. Normal echogenicity. No solid or suspicious masses. No h ydronephrosis. No calcifications. LEFT KIDNEY: Normal size, 12.2 cm. Normal echogenicity. No solid or suspicious masses. No hydronephr osis. No calcifications. BLADDER: No masses. Ureteral jets are not seen. OTHER FINDINGS: No other significant finding. IMPRESSION: NORMAL RENAL AND BLADDER ULTRASOUND. TECHNICAL DOCUMENTATION: JOB ID: [id number] [employer]- All Rights Reserved Reading location - IP/workstation name: [email or web address]
--- OUTSIDE RECORDS SUMMARY | 2020-05-21 15:29 | XMS REPORT ---
:1935 [facility] [address] [place] [address] Care Team Providers Name Role Phone Yvette Garrett Primary Care Physician Unavailable ABIOLA Attending Clinician Unavailable Yvette WHITING Attending Clinician Unavailable MARIA FERNANDA MURPHY Attending Clinician Unavailable ABIOLA Admitting Clinician Unavailable Magdy BENDER Admitting Clinician Unavailable Allergies, Adverse Reactions, Alerts Allergy Name Allergy Status Severity Reaction(s) Onset Inactive Treat ing Comments Type Date Date Clinician AMLODIPINE Drug Active U allergy 08-31 00:00: 00 Amlodipine Propensity Active Other (See Ankle/ped to adverse Comments) 11-29 al reactions 00:00: edemaA nkl 00 e/pedal edema Hydrochlorot Propensity Active Low Rash hiazide to adverse 07-16 reactions 00:00: 00 Hydrocodone Propensity Active Low Other (See 2013-07 to adverse Comments) 2 reactions 00:00: 00 Medications Ordered Filled Start Stop Current Ordering Indication Dosage Frequency Signature Comments Components Medication Medication Date Date Medication? Clinician (SIG) Name Name apixaban 2019-0 Yes Atrial 5mg Take 1 Take 1 (ELIQUIS) 5 7-24 fibrillatio tablet ( 5 tablet (5 mg Tab 00:00: n, mg total) mg total ) 00 unspecified by mouth by [facility] type Two (2) Two (2) ([facility]) times a times a day. day. apixaban 2019-0 2020- No Atrial 5mg Take 1 Take 1 (ELIQUIS) 5 1-29 07-24 fibrillatio tablet ( 5 tablet (5 mg Tab 00:00: 00:00 n, mg total) mg total ) 00 :00 unspecified by mouth by [facility] type Two (2) Two (2) ([facility]) times a times a day. day. hydrALAZINE Yes 25mg Take 1 Take 1 (APRESOLINE 1-07 tablet (25 tab let ) 25 MG 00:00: mg total) (25 mg tablet 00 by mouth total) by two (2) mouth two times a (2) times day. a day. lisinopril 2018-07 Yes Essential TAKE ONE T AGUSTIN ONE (PRINIVIL,Z 2-23 hypertensio TABLET B Y TABLET BY ESTRIL) 20 00:00: n MOUTH MOUTH MG tablet 00 TWICE A TWICE A DAY DAY simvastatin 2018-07 Yes Carotid 20mg Take 1 Take 1 (ZOCOR) 20 2-18 atheroscler tablet (2 0 tablet MG tablet 00:00: osis, left mg total) (20 mg 00 by mouth total) by nightly. mouth nightly. ELIQUIS 5 2018-07- No Atrial TAKE ONE TAKE ONE mg Tab 0-30 01-29 fibrillatio TABLET BY TAB LET BY 00:00: 00:00 n, MOUTH MOUTH 00 :00 unspecified TWICE A TWICE A type DAY DAY ([facility]) allopurinol Yes 300mg Take 300 Take 300 (ZYLOPRIM) 9-30 mg by mg by 300 MG 00:00: mouth mouth tablet 00 daily. daily. lisinopril No Essential TAKE ONE T AGUSTIN ONE (PRINIVIL,Z 9- hypertensio TABLET B Y TABLET BY ESTRIL) 20 00:00: n MOUTH MOUTH MG tablet 00 TWICE A TWICE A DAY DAY CALCIUM Yes Take by Take by CARBONATE 3-07 mouth mouth (CALCIUM 10:06: daily. daily. 500 ORAL) 31 amiodarone 2019- No 200mg Take 1 Take 1 (PACERONE) 3-07 10-07 tablet tablet 200 MG 00:00: 00:00 (200 mg (200 mg tablet 00 :00 total) by total) by mouth Two mouth Two (2) times (2) times a day. a day. allopurinol 2018- No allopurino (ZYLOPRIM) 1-14 10-07 l 100 MG 00:00: 00:00 (ZYLOPRIM) tablet 00 :00 100 MG tablet simvastatin 2017-07- No Carotid 20mg Take 1 Take 1 (ZOCOR) 20 2-03 12-18 atheroscler tablet (2 0 tablet MG tablet 00:00: 00:00 osis, left mg total) (20 mg 00 :00 by mouth total) by every mouth other day. every other day. apixaban No Atrial 5mg Take 1 Take 1 (ELIQUIS) 5 04-04 fibrillatio tablet ( 5 tablet (5 mg Tab 00:00: n, mg total) mg total ) 00 unspecified by mouth by mo ut[facility] type Two (2) Two (2) ([facility]) times a times a day. day. furosemide Yes Essential 20mg Take 1 Chris e 1 (LASIX) 20 04-04 hypertensio tablet (2 0 tablet MG tablet 00:00: n mg total) (20 m g 00 by mouth total) by daily as mouth needed. daily as needed. lisinopril No Essential 20mg Take 1 Chris e 1 (PRINIVIL,Z 04-04 hypertensio tablet ( 20 tablet ESTRIL) 20 00:00: n mg total) (20 mg MG tablet 00 by mouth total) by Two (2) mouth Two times a (2) times day. a day. nebivolol Yes Essential 20mg Take 1 Take 1 (BYSTOLIC) 04-04 hypertensio tablet (2 0 tablet 20 mg Tab 00:00: n mg total) (20 m g 00 by mouth total) by daily. mouth daily. apixaban No Atrial 5mg Take 1 Take 1 (ELIQUIS) 5 04-04 fibrillatio tablet ( 5 tablet (5 mg Tab 00:00: n, mg total) mg total ) 00 unspecified by mouth by mo [facility] type Two (2) Two (2) ([facility]) times a times a day. day. nebivolol No Essential 20mg Take 1 Take 1 (BYSTOLIC) 04-04 hypertensio tablet (2 0 tablet 20 mg Tab 00:00: n mg total) (20 m g 00 by mouth total) by daily. mouth daily. nebivolol 2018- No Essential 20MG Take 1 Take 1 (BYSTOLIC) 904-04 hypertensio tablet (2 0 tablet 20 mg Tab 00:00: 00:00 n mg total) (20 m g 00 :00 by mouth total) by daily. mouth daily. nebivolol 2017- No Essential 20MG Take 1 Take 1 (BYSTOLIC) 03-26 hypertensio tablet (2 0 tablet 20 mg Tab 00:00: 00:00 n mg total) (20 m g 00 :00 by mouth total) by daily. mouth daily. nebivolol 2017- No Essential 20MG Take 1 Take 1 (BYSTOLIC) 03-25 hypertensio tablet (2 0 tablet 20 mg Tab 00:00: 00:00 n mg total) (20 m g 00 :00 by mouth total) by daily. mouth daily. simvastatin No Carotid 20MG Take 1 Take 1 (ZOCOR) 20 03-16 atheroscler tablet (2 0 tablet MG tablet 00:00: osis, left mg total) (20 mg 00 by mouth total) by every mouth other day. every other day. apixaban 2017- No Atrial 5MG Take 1 Take 1 (ELIQUIS) 5 03-15 fibrillatio tablet ( 5 tablet (5 mg Tab 00:00: 00:00 n, mg total) mg total ) 00 :00 unspecified by mouth by [facility] type Two (2) Two (2) ([facility]) times a times a day. day. lisinopril 2017- No Essential 20MG Take 1 Chris e 1 (PRINIVIL,Z 03-15 hypertensio tablet ( 20 tablet ESTRIL) 20 00:00: 00:00 n mg total) (20 mg MG tablet 00 :00 by mouth total) by Two (2) mouth Two times a (2) times day. a day. furosemide 2017- No Essential 20MG Take 1 Chris e 1 (LASIX) 20 03-15 hypertensio tablet (2 0 tablet MG tablet 00:00: 00:00 n mg total) (20 m g 00 :00 by mouth total) by daily as mouth needed. daily as needed. nebivolol 2017- No Essential 20MG Take 1 Take 1 (BYSTOLIC) 03-15 hypertensio tablet (2 0 tablet 20 mg Tab 00:00: 00:00 n mg total) (20 m g 00 :00 by mouth total) by daily. mouth daily. pantoprazol 2018- No Gastroesoph 40MG Take 1 Take 1 e 407 -07 ageal tablet (40 tablet (PROTONIX) 00:00: 00:00 reflux mg total) (40 mg 40 MG 00 :00 disease by mouth total) by tablet without daily at mouth esophagitis 0600. daily at 0600. multivitami No 1{tbl} Take 1 Take 1 n 5-24 tablet by tablet by (THERAGRAN) 10:30: mouth mouth per tablet 06 daily. daily. CALCIUM No Take by Take by CARBONATE 2-09 mouth mouth (CALCIUM 09:12: daily. daily. 500 ORAL) 07 alendronate Yes 70mg Take 70 mg Ta ke 70 (FOSAMAX) - by mouth mg by 70 MG 00:00: every mouth tablet 00 seven (7) every days. seven (7) days. multivitami Yes 1{tbl} Take 1 Take 1 n tablet by tablet by (THERAGRAN) mouth mouth per tablet daily. daily. 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 0 13:08:08 terolemia terolemia 00:00: 00 Atrial Atrial Condition Inactiv 2015-12-02 fibrillatio fibrillatio e 4-15 11:06:01 n n 00:00: 00 PAF PAF [id number] Active 2019-04-14 (paroxysmal (paroxysmal 4-15 13:08:14 atrial atrial 00:00: fibrillatio fibrillatio 00 n) n) Chest pain Chest pain Condition Active 2013-072014-06-1508-16 11:43:20 00:00: 00 GERD GERD Condition Active 2013-072014-06-15 (gastroesop (gastroesop 08-16 11:43:27 hageal hageal 00:00: reflux reflux 00 disease) disease) Hypertensio Hypertensio Condition Active 2013-072014-06-15 n n - 11:43:08 00:00: 00 Procedures Procedure Date / Time Performed Performing Clinician Devic e ECHOCARDIOGRAM W COLORFLOW 2019-07-22 15:42:32 Renzo Serra SPECTRAL DOPPLER LIPID PANEL 2019-02-14 15:21:00 Reyna Garrett Results Test Description Test Time Test Comments Text Results Atomic Results Result Comments NUCLEAR 2019-09-11 Critical access hospital 11:32:00 3500 [facility] [address] Patient: MARILU PIZARRO : 1935 Sex: F Address: [address] [place] [address] [place] [address] Unit #: [id number] REQ SEQ #: [id number] Location: [facility] Room #: [id number] Ordering: CLINOTN BENDER MD Diagnosis: CHEST PAIN 0304- 0003 NM/CARDIAC STRESS TEST LEXISCAN: 0 09/10/19 Lexiscan sestamibi stress Indication: Chest pain Referring physician: Dr. Tyson richardson Ms. Pizarro presents in a fasting state. Informed consent is obtained. The patient is monit ored with continuous EKG and noninvasive blood pressure. EKG at rest shows sinus rhythm with left bundle branch block. 0.4 mg Lexiscan was given intravenously over 10 seconds and followed by sali ne flush. Sestamibi was then given intravenous and also followed by saline flush. After infusion p atient was asymptomatic with no EKG changes from baseline. Resting heart rate of 54 Bpm increased to 70 Bpm, blood pressure decreased from 170/54 to 127/62 after infusion. There are no changes o n the EKG portion of study with pharmacological stress. Nuclear images of the myocardium were obtained using cine motion and tomographic technique. Rest and stress images were obtained under n ormal protocol with patient received 12.7 mCi and 31.3 mCi oftechnetium 99m sestamibi intravenously fo r the rest and stress images respectively. Left ventricular ejection fraction was calculated under standard rest imagery. Left ventricular end diastolic volume 106 cc, left ventricular end- systolic volume 27 cc, left ventricular ejection fraction 75%. TID 1.16 Procedure was not gated. Review of the polar mapping suggest a moderate defect involving the anterior septal wall which is fi xed with trivial reversibility. Review of the sliced images on grayscale and color do not clearlysh ow the anterior septal defect, old septal infarct/fixed defect cannot be excluded. Impression: No evidence of ischemia/reversibility The left ventricle is normal size with normal systolic functio n Left bundle branch block unchanged throughout the study Cannot exclude old septal infarct/scar No old studies on file for comparison Signed by: TYLER LYNN MD 09/11/19 1132 cc: TYLER LYNN MD, ROBERTO P MD RADIOLOGY 2019-09-10 [facility] 10:10:[address] [place] [address] Patient: MARILU PIZARRO : 1935 Sex: F Address: [address] [place] [address] [place] [address] Unit #: [id number] REQ SEQ #: [id number] Location: [facility] Room #: [id number] Ordering: CLINTON BENDER MD Diagnosis: CHEST PAIN KUB - 1 VIEW ABD History: CHEST P AIN CHEST PAIN SS Constipation/obstipation Supine view of the abdomen demonstrates a n onobstructive bowel gas pattern. Organ shadows are unremarkable. Bony structures are unremarkable . There are no significant calcifications. There is prominent retained stool which may be suggest marsha of constipation. Impression: Prominent retained stool otherwise nonacute abdomen. Fi nal report electronically signed by: Anne Jorge MD Signed by: ANNE JORGE II, MD [id number] cc: CLINTON BENDER MD, II,ANNE Kimble MD RADIOLOGY 2019-09-09 [facility] 19:10:00 7650 [facility] [address] Patient: MARILU PIZARRO : 1935 Sex: F Address: [address] [place] [address] [place] [address] Unit #: [id number] [facility] SEQ #: [id number] Location: ED Room #: Ordering: BRENNAN ZIEGLER DO Diagnosis: CHEST PAIN Exam: Single view of the chest. Date of exam: 09/09/2019 processed at 1848 Indications: Left-sided chest pain, burping, back pain Compar nicole: None. Findings: Single view of the chest shows the lungs to be free of any focal infiltrate s or pleural effusions. There is no pulmonary vascular congestion or pneumothorax. The cardiac and mediastinal silhouettes are unremarkable in appearance. There are no abnormalities within the visua lized bony thorax. Partially visualized orthopedic hardware projecting over the proximal right h umerus. Impression: No acute pulmonary process. Final report electronically signed by: Amber Fuller MD Signed by: BRENDA FULLER MD 09/09/19 0986 cc: BRENNAN ZIEGLER ROS EMARY H MD #[id number] 2019-07-22 Echocardiogram W Colorflow Spectral Doppler (07/22/2019 10:42 AM EST)SpecimenNarrativePerformed At [id number] 10:06:00 Transthoracic Ec ho Report [address], [address] [place] [address] CONSUELOKAUR MARILURADHA sadler Exam Date: 07/22 10:06 Ordering Physician: RENZO SERRA) Age: 84 Gender: F Exam Location: [facility] ary_Echo Referring Physician: RENZO SERRA) : 1935 Ht (in): 68 Wt (lb): 211 Reading Physician: Renzo Serra MD Production Control Analyst: Bessie Jennings RDCS Procedure C PT: 04164 Indications: bradycardia, afib ICD Codes: Pt. History: BP: 158 / 62 HR: Rhythm: Sinus wi th LBBB Technical Quality: Good IMPRESSIONS Normal global left ventricular size, systolic functio n with abnormal septal bounce c/w LBBB. Mild left ventricular hypertrophy. Normal left ventricular ejection fraction estimated at 55%. Normal right ventricular size and function. Mild mitral regurgita tion. No aortic stenosis. No aortic regurgitation. Mild tricuspid regurgitation. Estimated PASP 4 0mmHg. No pericardial effusion. Normal inferior vena cava. FINDINGS Left Ventricle Normal global le ft ventricular size, systolic function with abnormal septal bounce c/w LBBB. Mild left ventricular hypertrophy. Normal left ventricular ejection fraction estimated at 55%. Septal E/E' ratio is 20.5 in dicating abnormal filling pressure. Right Ventricle Normal right ventricular size and function. Right Atrium Normal right atrial size. Left Atrium Mild left atrial dilatation. Mitral Valve Normal fun ction and mobility of the mitral valve leaflets. Mitral annular calcification. Mild mitral regurgita tion. Aortic Valve Structurally normal trileaflet aortic valve. No aortic stenosis. No aortic regurg itation. Tricuspid Valve Structurally normal tricuspid valve. Mild tricuspid regurgitation. E stimated PASP 40mmHg Pulmonic Valve Structurally normal pulmonic valve. Kndh-gf-utiglaji pulmonic regurgitation. Pericardium Normal pericardium. No pericardial effusion. Vessels Normal s ize aortic root and proximal ascending aorta. Normal inferior vena cava. MEASUREMENTS (Male / Female) Normal Values 2D ECHO LV Diastolic Diameter JASON 4.9 cm 4.2 - 5.9 / 3 Aortic Root Diameter 2.8 cm LV Systolic Diameter PLAX 2.9 cm LA Systolic Diameter LX 4.1 cm 3.0 - 4.0 / 2.7 - 3.8 cm IVS Diastolic Th ickness 1.2 cm 0.6 - 1.0 / 0 LA Volume Index 35.7 cm/m 16 - 28 cm/m LVPW Diastolic Thickness 1.2 cm 0.6 - 1.0 / 0 Ascending Aorta Diameter 3.3 cm LV Relative Wall Thicknes 0.5 DOPPLER MV Area PHT 3.1 cm LV E' Septal Velocity 4.3 cm/s Mitral E Point Velocity 87.0 cm/s Mitral E to LV E' Septal 20.5 Mitral A Point Velocity 94.7 cm/s TR Peak Velocity 296.0 cm/s Mitral E to A Ratio 0.9 TR Peak Gradient 35.0 mmHg MV Deceleration Sheldon e 246.0 ms Right Atrial Pressure 5.0 mmHg LV E' Lateral Ve locity 9.0 cm/s Pulmonary Artery Systolic 40.0 mmHg Mitral E to LV E' Lateral 9.7 Right Ventricular Systoli 40.0 mmHg Bruc e Maryse VILLAGOMEZ (Electronically Signed) Final Date: 22 July 2019 17:36EM RADProcedure NoteInterface, R ad Results In - 07/22/2019 5:36 PM EST Transthoracic Echo Report [address], [address] [place] [address] MARILU PIZARRO Exam Date: 07/22/2019 10:06 Ordering Physician: RENZO SERRA ([facility]) Age: 84 Gender: F [facility] Referring Physician: RENZO SERRA (terry) : 1935 Ht (in): 68 Wt (lb): 211 Reading Physician: Renzo Bazan RN: [id number] Production Control Analyst: Bessie Jennings RDCS Procedure CPT: 29716 Indications: bra dycardia, afib ICD Codes: Pt. History: BP: 158 / 62 HR: Rhythm: Sinus with LBBB Technical Qualit y: Good IMPRESSIONS Normal global left ventricular size, systolic function with abnormal septal bounce c/w LBBB. Mild left ventricular hypertrophy. Normal left ventricular ejection fraction estimat ed at 55%. Normal right ventricular size and function. Mild mitral regurgitation. No aortic stenosis. No aortic regurgitation. Mild tricuspid regurgitation. Estimated PASP 40mmHg. No pericardial effu nicki. Normal inferior vena cava. FINDINGS Left Ventricle Normal global left ventricular size , systolic function with abnormal septal bounce c/w LBBB. Mild left ventricular hypertrophy. Nor mal left ventricular ejection fraction estimated at 55%. Septal E/E' ratio is 20.5 indicating abnor mal filling pressure. Right Ventricle Normal right ventricular size and function. Right Atrium Nor mal right atrial size. Left Atrium Mild left atrial dilatation. Mitral Valve Normal function and mob ility of the mitral valve leaflets. Mitral annular calcification. Mild mitral regurgitation. A ortic Valve Structurally normal trileaflet aortic valve. No aortic stenosis. No aortic regurgita tion. Tricuspid Valve Structurally normal tricuspid valve. Mild tricuspid regurgitation. E stimated PASP 40mmHg Pulmonic Valve Structurally normal pulmonic valve. Oeab-bm-aysbpiqu pulmonic regurgitation. Pericardium Normal pericardium. No pericardial effusion. Vessels Normal s ize aortic root and proximal ascending aorta. Normal inferior vena cava. MEASUREMENTS (Male / Female) Normal Values 2D ECHO LV Diastolic Diameter JASON 4.9 cm 4.2 - 5.9 / 3 Aortic Root Diameter 2.8 cm LV Systolic Diameter PLAX 2.9 cm LA Systolic Diameter LX 4.1 cm 3.0 - 4.0 / 2.7 - 3.8 cm IVS Diastolic Thickness 1.2 cm 0.6 - 1.0 / 0 LA Volume Index 35.7 cm/m 16 - 28 cm/m LVPW Diastolic Thickn ess 1.2 cm 0.6 - 1.0 / 0 Ascending Aorta Diameter 3.3 cm LV Relative Wall Thicknes 0.5 DOPPLER MV A navdeep PHT 3.1 cm LV E' Septal Velocity 4.3 cm/s Mitral E Point Velocity 87.0 cm/s Mitral E to LV E ' Septal 20.5 Mitral A Point Velocity 94.7 cm/s TR Peak Velocity 296.0 cm/s Mitral E to A Ratio 0.9 T R Peak Gradient 35.0 mmHg MV Deceleration Time 246.0 ms Right Atrial Pressure 5.0 mmHg LV E' Later al Velocity 9.0 cm/s Pulmonary Artery Systolic 40.0 mmHg Mitral E to LV E' Lateral 9.7 Right Ventri cular Systoli 40.0 mmHg Renzo Serra MD (Electronically Signed) Final Date: 22 July 2019 17:36Perfor [employer]-Box - [email or web address] OrganizationAddressCity/State/ZipcodePhone Number[facility] RAD[facility] [id number] [place] [address] #[id number] 2019-02-14 11:21:00 Test Item Value Reference Range Comments Cholesterol (test code = Cholesterol) 196 mg/dL 100- 199 m g/dL Triglycerides (test code = Triglycerides) 134 mg/dL 0- 149 mg/dL HDL (test code = HDL) 61 mg/dL 39 mg/dL LDL Calculated (test code = LDL Calculated) 108 mg/dL 0- 9 9 mg/dL Non-HDL Cholesterol (test code = Non-HDL Cholesterol) Chol/HDL Ratio (test code = Chol/HDL Ratio) VLDL Cholesterol Boby (test code = VLDL Cholesterol Boby) 27 5-40 Encounters Start End Encounter Admission Attending Care Care Encounter ID Date/Time Date/Time Type Type Clinicians Facility Department 2019-07-17 Inpatient UR EVELIA [facility]UL[facility] JOHN [id number] 23:59:00 [id number] 2020-01-30 2020-01-30 Outpatient [facility] [id number] 00:00:00 00:00:00 2020-01-30 2020-01-30 Outpatient [facility] [id number] 00:00:00 00:00:00 2019-09-09 2019-09-[address] [facility] [id number] 20:31:00 15:05:00 BESSIE 2019-08-06 2019-08-06 [facility] [id number] 00:00:00 00:00:00 2019-08-05 2019-08-05 [facility] [id number] 00:00:00 00:00:00 2019-07-24 2019-07-24 [facility] [id number] 00:00:00 00:00:00 2019-07-22 2019-07-22 Outpatient [facility] [id number] 09:58:00 23:59:00 2019-07-22 2019-07-22 Outpatient [facility] [id number] 09:59:00 13:03:01 [id number] 2019-07-22 2019-07-22 [facility] [id number] 09:59:00 10:29:00 2019-07-21 2019-07-21 Out[facility] [id number] 00:00:00 00:00:00 2019-07-18 2019-07-18 Outpatient [facility] [id number] 00:00:00 00:00:00 2019-07-17 2019-07-17 Outpatient [facility] [id number] 00:00:00 00:00:00 2019-07-14 2019-07-14 Out[facility] [id number] 00:00:00 00:00:00 2019-06-24 2019-06-24 [facility] [id number] 00:00:00 00:00:00 2019-06-24 2019-06-24 [facility] [id number] 00:00:00 00:00:00 2019-04-25 2019-04-25 Outpatient [facility] [id number] 00:00:00 00:00:00 2019-04-14 2019-04-14 Out[facility] [id number] 09:51:41 10:55:55 2019-04-14 2019-04-14 Outpatient [facility] [id number] 09:51:41 10:55:55 [id number] 2019-02-19 2019-02-19 Out[facility] [id number] 00:00:00 00:00:00 2018-10-22 2018-10-22 Outpatient [facility] [id number] 00:00:00 00:00:00 2018-10-10 2018-10-10 Outpatient [facility] [id number] 00:00:00 00:00:00 [id number] 2018-10-07 2018-10-07 Out[facility] [id number] 00:00:00 00:00:00 2018-10-04 2018-10-04 Outpatient [facility] [id number] 11:44:36 14:22:39 [id number] 2018-10-04 2018-10-04 Out[facility] [id number] 11:44:36 12:00:00 2018-09-27 2018-09-27 Out[facility] [id number] 00:00:00 00:00:00 2018-09-12 2018-09-12 Outpatient [facility] [id number] 09:54:50 10:58:00 2018-09-12 2018-09-12 Outpatient [facility] [id number] 09:54:50 10:58:00 [id number] 2018-08-14 2018-08-14 Outpatient [facility] [id number] 00:00:00 00:00:00 2018-04-04 2018-04-04 Outpatient [facility] [id number] 10:11:54 11:12:05 2018-03-27 2018-03-27 Outpatient [facility] [id number] 00:00:00 00:00:00 2018-03-26 2018-03-26 Outpatient [facility] [id number] 00:00:00 00:00:00 2018-03-25 2018-03-25 Outpatient [facility] [id number] 00:00:00 00:00:00 2017-10-02 2017-10-02 Outpatient [facility] [id number] 10:34:06 11:28:13 [id number] 2015-08-17 2015-08-17 Outpatient [facility], [facility] [id number] 10:15:02 23:59:00 [id number] [id number] 2014-06-15 2014-06-15 Emergency [facility] [id number] 07:51:14 23:59:00 [id number] Immunizations Ordered Immunization Filled Immunization Date Status Commen ts Refusal Reason Name Name Influenza Virus 2016-05-12 Completed Vaccine, unspecified 00:00:00 formulation Pneumococcal 2016-05-12 Completed Conjugate 13-Valent 00:00:00 Payers Payer Name Policy Type Policy Number Effective Date Expiration D ate MEDICARE PART A AND [id number] 1999 00:00:00 PART B AETNA [facility] [id number] 2013 00:00:00 SUPPLEMENTAL INSURANCE Plan of Treatment Planned Activity Planned Date Details Comments Future Scheduled Test [code = ] Future Scheduled Test [code = ] Future Scheduled Test [code = ] Future Scheduled Test [code = ] Future Scheduled Test [code = ] Future Scheduled Test [code = ] Future Scheduled Test [code = ] Future Scheduled Test [code = ] Future Scheduled Test [code = ] Future Scheduled Test [code = ] Future Scheduled Test [code = ] Future Scheduled Test [code = ] Future Scheduled Test [code = ] Future Scheduled Test [code = ] Future Scheduled Test [code = ] Future Scheduled Test [code = ] Future Scheduled Test [code = ] Future Scheduled Test [code = ] Future Scheduled Test [code = ] Future Scheduled Test [code = ] Social History Social Habit Start Date Stop Date Comments Tobacco smoking status NMIS 2019-04-14 00:00:00 2019-04-14 00:00 :00 Alcohol intake 2019-04-14 00:00:00 2019-04-14 00:00:00 Tobacco use and exposure 2019-04-14 00:00:00 2019-04-14 00:00:00 Vital Signs Vital Name Observation Time Observation Value Comments WEIGHT 2019-09-10 04:21:00 99.6000 kg HEIGHT 2019-09-10 04:21:00 167.870406 cm WEIGHT 2019-09-09 18:37:00 100.8000 kg HEIGHT 2019-09-09 18:37:00 165.268050 cm Systolic blood pressure 2019-04-14 09:59:00 158 mm[Hg] Diastolic blood pressure 2019-04-14 09:59:00 82 mm[Hg] Heart rate 2019-04-14 09:59:00 52 /min Body height 2019-04-14 09:59:00 170.2 cm Body weight 2019-04-14 09:59:00 96.026 kg SYSTOLIC BLOOD PRESSURE 2018-09-12 10:06:00 140 mm[Hg] DIASTOLIC BLOOD PRESSURE 2018-09-12 10:06:00 74 mm[Hg] HEART RATE 2018-09-12 10:06:00 82 /min HEIGHT 2018-09-12 10:06:00 170.2 cm WEIGHT 2018-09-12 10:06:00 97.523 kg SYSTOLIC BLOOD PRESSURE 2018-04-04 10:22:00 128 mm[Hg] DIASTOLIC BLOOD PRESSURE 2018-04-04 10:22:00 64 mm[Hg] HEART RATE 2018-04-04 10:22:00 60 /min HEIGHT 2018-04-04 10:22:00 172.7 cm WEIGHT 2018-04-04 10:22:00 98.884 kg
== END ==
LOC: RAD 12:50
PROVIDERS: ATTEND Physician Assistant
DX: N18.1 Chronic kidney disease, stage 1 (principal)
CPT/HCPCS: 76770